=== PATIENT | female | born 1935 | race Caucasian/White ===

== ENCOUNTER 2020-10-06 16:07 | Emergency (ER) | payer OTHER, BC ==
[2020-10-06 16:29] VITALS: BP 160/90; PULSE 120; TEMP 98.8; BMI 25.8
[2020-10-06] MEDS ORDERED: DIPHTH,PERTUSS(ACELL),TET 0.5 ML DISP.SYRIN IM ONE ×2 (16:51→17:19)
== END 2020-10-06 19:29 | disposition home or self-care (01) ==
LOC: JER 16:07
PROC: 3E0234Z Introduction of Serum, Toxoid and Vaccine into Muscle, Percutaneous Approach (ICD-10-PCS; principal; 2020-10-06)
DX: S00.91XA Abrasion of unspecified part of head, initial encounter (principal); S09.90XA Unspecified injury of head, initial encounter
CPT/HCPCS: 70450-TC; 72125-TC; 90715; 99284-25